=== PATIENT | male | born 1960 | race Caucasian/White ===

== ENCOUNTER 2021-08-05 00:32 | Outpatient (CLI) | payer BC, SELFPAY ==
--- NOTE | 2021-08-05 | DI.NM_ITS ---
Exam(s) NM HEPATOBILIARY CCK GRP EXAM: NM HEPATOBILIARY CCK GRP CLINICAL HISTORY: RT UPPER QUAD PAIN, R10.11. TECHNIQUE: Injected dose: 5 mCi Tc-99 mebrofenin Post-Gallbladder fillin.7 micrograms CCK administered intravenously. Addition images: 20 minute dynamic during CCK administration. COMPARISON: Apparently this patient a recent negative outside ultrasound which did not reveal gallst ones. FINDINGS: There is normal uptake and excretion of radiopharmaceutical by the liver and activity seen within the gallbladder lumen starting at 10 minutes post injection. CBD is not dilated. Radiopharmaceuticals also rapidly excreted down the CBD into the duodenal C loop and left upper quadrant jejunal loops. In response to CCK infusion there is a normal gallbladder ejection fraction of 74 percent demonstrate d. IMPRESSION: Normal study. There is no evidence of obstruction of the cystic duct and there is no evidence of gal lbladder dysfunction. In response to CCK infusion there is a normal gallbladder ejection of 74 percent demonstrated. Bernice l is greater than 35 percent.
== END 2021-08-05 00:52 ==
PROVIDERS: Visit Provider Student in an Organized Health Care Education/Training Program
DX: R10.11 Right upper quadrant pain (principal)
CPT/HCPCS: 78227